=== PATIENT | male | born 1970 | race Two or more races ===

== ENCOUNTER 2021-12-30 23:08 | Inpatient (IN) | payer MEDICARE, MEDICAID ==
[~2021-12-30] VITALS: Ht 165.1 cm; Wt 57.2 kg
[~2021-12-30 23:08] MED LIST: [UNRECOGNIZED DRUG - REMARK]
[2021-12-31 00:09] LABS: Basophils # (auto) 0.1 10 ^3/uL (0-0.2); Basophils % (auto) 1.6 % (0.0-2.0); Eosinophils # (auto) 0.3 10 ^3/uL (0-0.8); Eosinophils % (auto) 4.7 % (0.0-7.0); Hematocrit 46.2 % (41.0-53.0); Hemoglobin 15.6 g/dL (13.5-17.5); Lymphocytes # (auto) 0.9 10 ^3/uL (0.4-5.4); Lymphocytes % (auto) 13.9 % (10.0-50.0); Mean Corpuscular Hemoglobin 28.7 pg (28.0-32.0); Mean Corpuscular Hgb Conc. 33.8 g/dL (32.0-36.0); Mean Corpuscular Volume 84.8 fL (80.0-100.0); Monocytes # (auto) 0.2 10 ^3/uL (0-1.3); Monocytes % (auto) 3.7 % (0.0-12.0); Neutrophils # (auto) 4.8 10 ^3/uL (1.6-8.6); Neutrophils % (auto) 76.1 % (37.0-80.0); Nucleated Red Blood Cells % 0.1 %; Red Blood Cells 5.45 10^6/uL (4.5-5.90); Red Cell Distribution Width 13.8 % (11.8-14.3); White Blood Cell 6.3 10^3/uL (4.4-10.8)
[2021-12-31 00:26] LABS: Alanine Aminotransferase 29 U/L (16-61); Albumin 3.9 g/dL (3.4-5.0); Anion Gap 9 (5-15); Aspartate Aminotransferase 18 U/L (15-37); BUN/Creatinine Ratio 14.3; Blood Alcohol < 3.0 mg/dL (0-5); Blood Urea Nitrogen 10 mg/dL (7-18); Carbon Dioxide 23 mmol/L (21-32); Chloride 108 mmol/L (98-107); GFR African American 152 mL/min; GFR Non-African American 125 mL/min; Glucose 93 mg/dL (74-106); Potassium 3.2 mmol/L (3.5-5.1); Sodium 140 mmol/L (136-145)
[2021-12-31 00:29] LABS: Alkaline Phosphatase 91 U/L (45-117); Bilirubin, Total 0.6 mg/dL (0.2-1.0); Total Protein 7.1 g/dL (6.4-8.2)
[2021-12-31] MEDS ORDERED: AZITHROMYCIN 500MG/ 250ML 250 ML IV ONE (02:00)
[2021-12-31] MEDS ORDERED: cefTRIAXone SOD 1,000 MG VL IV ONE (02:00)
[2021-12-31 02:09] LABS: Urine Bacteria NONE SEEN /hpf (None Seen); Urine Blood Negative /uL (Negative); Urine Specific Gravity 1.007 (1.001-1.035); Urine Sperm PRESENT /hpf (None Seen); Urine WBC <1 /hpf (0 - 3)
[2021-12-31] MEDS ORDERED: DOCUSATE SOD 100 MG CAP PO PRN (04:45)
[2021-12-31] MEDS ORDERED: hydrALAZINE HCL 20 MG/ML VL IV PRN (04:45)
[2021-12-31] MEDS ORDERED: ACETAMINOPHEN 325 MG TAB PO PRN (04:45)
[2021-12-31] MEDS ORDERED: ONDANSETRON HCL 4 MG/2 ML VIAL IV PRN (04:45)
[2021-12-31] MEDS ORDERED: HYDROcodone-ACET 5/325MG TAB PO PRN (04:45)
[2021-12-31] MEDS: POTASSIUM CHL 20MEQ/100ML 100 ML IV SCH ×2 (05:40→07:26)
[2021-12-31] MEDS ORDERED: MORPHINE SULFATE INJ 2 MG/ml SYRG IV PRN (05:45)
[2021-12-31] MEDS ORDERED: NITROGLYCERIN 0.4 MG SL TAB SL PRN (05:45)
[2021-12-31] MEDS: SODIUM CHLOR 0.9% PF (SALINE LOCK) 10ML VIAL/SYR IV SCH ×3 (05:56→22:40)
[2021-12-31 07:29] LABS: Basophils # (auto) 0.1 10 ^3/uL (0-0.2); Basophils % (auto) 0.6 % (0.0-2.0); Eosinophils # (auto) 0.2 10 ^3/uL (0-0.8); Eosinophils % (auto) 2.1 % (0.0-7.0); Hematocrit 38.4 % (41.0-53.0); Hemoglobin 12.7 g/dL (13.5-17.5); Lymphocytes # (auto) 3.2 10 ^3/uL (0.4-5.4); Lymphocytes % (auto) 30.7 % (10.0-50.0); Mean Corpuscular Hemoglobin 29.3 pg (28.0-32.0); Mean Corpuscular Hgb Conc. 33.2 g/dL (32.0-36.0); Mean Corpuscular Volume 88.2 fL (80.0-100.0); Monocytes % (auto) 9.8 % (0.0-12.0); Neutrophils # (auto) 5.9 10 ^3/uL (1.6-8.6); Neutrophils % (auto) 56.8 % (37.0-80.0); Red Blood Cells 4.35 10^6/uL (4.5-5.90); Red Cell Distribution Width 13.7 % (11.8-14.3); White Blood Cell 10.4 10^3/uL (4.4-10.8)
[2021-12-31 07:31] LABS: Potassium 3.4 mmol/L (3.5-5.1)
[2021-12-31 07:33] LABS: BUN/Creatinine Ratio 17.9
[2021-12-31 07:35] LABS: Bilirubin, Total 0.2 mg/dL (0.2-1.0); Total Protein 7.4 g/dL (6.4-8.2)
[2021-12-31] MEDS: cefTRIAXone 1GM/50ML D5W 50 ML IV SCH (12:21)
[2021-12-31] MEDS: AZITHROMYCIN 500MG/ 250ML 250 ML IV SCH (12:22)
[2021-12-31] MEDS: FAMOTIDINE (10MG/ML) 2ML VL IV SCH ×2 (12:22→22:00)
[2021-12-31] MEDS: ENOXAPARIN SOD 40 MG/0.4 ML SYRINGE SC SCH (12:22)
[2021-12-31] MEDS: MULTIPLE VITAMIN TAB PO SCH (12:23)
[2021-12-31] MEDS: ZINC SULFATE 220mg CAP or TAB PO SCH (12:24)
[2021-12-31] MEDS: ASCORBIC ACID 500 MG TAB PO SCH ×2 (12:25→22:40)
[2021-12-31 22:00] VITALS: BP 151/93
[2021-12-31 22:03] VITALS: BP 151/93
[2021-12-31 22:19] VITALS: BP 151/93
[2021-12-31] MEDS ORDERED: ATOR10TA52 PO (22:26)
[2021-12-31] MEDS ORDERED: TRIA0.5C TOP (22:26)
[2021-12-31] MEDS ORDERED: PARO10TA93 PO (22:26)
[2021-12-31] MEDS ORDERED: OMEP-260 PO (22:26)
[2021-12-31] MEDS ORDERED: BACL10TA PO (22:26)
[2021-12-31] MEDS ORDERED: CEPH500C PO (22:26)
[2022-01-01] MEDS ORDERED: ALPRAZolam 0.5 MG TAB PO ONE (00:45)
[2022-01-01] MEDS ORDERED: hydrALAZINE HCL 25 MG TAB PO PRN (00:45)
[2022-01-01 05:00] VITALS: BP 148/102
[2022-01-01] MEDS: SODIUM CHLOR 0.9% PF (SALINE LOCK) 10ML VIAL/SYR IV SCH ×2 (05:17→13:30)
[2022-01-01 06:23] LABS: Basophils # (auto) 0 10 ^3/uL (0-0.2); Basophils % (auto) 0.5 % (0.0-2.0); Eosinophils # (auto) 0.1 10 ^3/uL (0-0.8); Eosinophils % (auto) 0.9 % (0.0-7.0); Hematocrit 45.9 % (41.0-53.0); Hemoglobin 15.3 g/dL (13.5-17.5); Lymphocytes # (auto) 2.2 10 ^3/uL (0.4-5.4); Lymphocytes % (auto) 28.8 % (10.0-50.0); Mean Corpuscular Hemoglobin 28.4 pg (28.0-32.0); Mean Corpuscular Hgb Conc. 33.4 g/dL (32.0-36.0); Mean Corpuscular Volume 85.2 fL (80.0-100.0); Monocytes # (auto) 0.6 10 ^3/uL (0-1.3); Monocytes % (auto) 8.2 % (0.0-12.0); Neutrophils # (auto) 4.6 10 ^3/uL (1.6-8.6); Neutrophils % (auto) 61.6 % (37.0-80.0); Nucleated Red Blood Cells % 0.1 %; Red Blood Cells 5.38 10^6/uL (4.5-5.90); Red Cell Distribution Width 13.7 % (11.8-14.3); White Blood Cell 7.5 10^3/uL (4.4-10.8)
[2022-01-01 06:28] LABS: Potassium 3.3 mmol/L (3.5-5.1)
[2022-01-01 06:41] LABS: Albumin 3.8 g/dL (3.4-5.0); BUN/Creatinine Ratio 12.8; Bilirubin, Total 0.6 mg/dL (0.2-1.0); Calcium 8.8 mg/dL (8.5-10.1); Total Protein 6.7 g/dL (6.4-8.2)
[2022-01-01 09:00] VITALS: BP 143/92
[2022-01-01] MEDS: FAMOTIDINE (10MG/ML) 2ML VL IV SCH (10:00)
[2022-01-01] MEDS: AZITHROMYCIN 500MG/ 250ML 250 ML IV SCH (10:00)
[2022-01-01] MEDS: ASCORBIC ACID 500 MG TAB PO SCH (10:54)
[2022-01-01] MEDS: MULTIPLE VITAMIN TAB PO SCH (10:54)
[2022-01-01] MEDS: cefTRIAXone 1GM/50ML D5W 50 ML IV SCH (10:54)
[2022-01-01] MEDS: ZINC SULFATE 220mg CAP or TAB PO SCH (10:54)
[2022-01-01] MEDS: ENOXAPARIN SOD 40 MG/0.4 ML SYRINGE SC SCH (10:55)
[2022-01-01] MEDS ORDERED: AZIT500T66 PO (11:10)
[2022-01-01 13:00] VITALS: BP 106/70
[2022-01-01 13:21] VITALS: BP 106/70
== END 2022-01-01 17:20 | disposition home or self-care (01) | DRG 70 ==
LOC: ER 23:08 → EDBD 23:08 → OVERFLOW 12-31 05:41 → WEST WING 12-31 09:10
PROVIDERS: ADMIT Nurse Practitioner Family; ATTEND Family Medicine
DX: G93.41 Metabolic encephalopathy (principal); J18.9 Pneumonia, unspecified organism; J96.01 Acute respiratory failure with hypoxia; E46 Unspecified protein-calorie malnutrition; G80.8 Other cerebral palsy; E87.6 Hypokalemia; Z20.822 Contact with and (suspected) exposure to COVID-19; I51.7 Cardiomegaly; Z68.21 Body mass index [BMI] 21.0-21.9, adult; Z79.899 Other long term (current) drug therapy
CPT/HCPCS: 36415; 71045; 80053; 80320; 81001; 83605; 84484; 85025; 93005; 96365; 96375; G0378; J0696; J3480; J3490

== ENCOUNTER 2022-06-10 20:12 | Emergency (ER) | payer MEDICARE, MEDICAID ==
[~2022-06-10] VITALS: Ht 167.6 cm; Wt 60.0 kg
[~2022-06-10 20:12] MED LIST changes: +ATOR10TA52 PO; +AZIT500T66 PO; +BACL10TA PO; +CEPH500C PO; +OMEP-260 PO; +PARO10TA93 PO; +TRIA0.5C TOP
[2022-06-10 22:01] LABS: Basophils # (auto) 0.1 10 ^3/uL (0-0.2); Basophils % (auto) 0.4 % (0.0-2.0); Eosinophils # (auto) 0 10 ^3/uL (0-0.8); Eosinophils % (auto) 0.4 % (0.0-7.0); Hematocrit 48.4 % (41.0-53.0); Hemoglobin 16.2 g/dL (13.5-17.5); Lymphocytes # (auto) 1.5 10 ^3/uL (0.4-5.4); Lymphocytes % (auto) 13.3 % (10.0-50.0); Mean Corpuscular Hemoglobin 28.4 pg (28.0-32.0); Mean Corpuscular Hgb Conc. 33.4 g/dL (32.0-36.0); Mean Corpuscular Volume 85.1 fL (80.0-100.0); Monocytes # (auto) 0.8 10 ^3/uL (0-1.3); Monocytes % (auto) 7.4 % (0.0-12.0); Neutrophils # (auto) 8.9 10 ^3/uL (1.6-8.6); Neutrophils % (auto) 78.5 % (37.0-80.0); Nucleated Red Blood Cells % 0.2 %; Red Blood Cells 5.69 10^6/uL (4.5-5.90); Red Cell Distribution Width 14.1 % (11.8-14.3); White Blood Cell 11.3 10^3/uL (4.4-10.8)
[2022-06-10 22:19] LABS: Albumin 3.6 g/dL (3.4-5.0); BUN/Creatinine Ratio 17.5; Calcium 9.1 mg/dL (8.5-10.1); Potassium 3.4 mmol/L (3.5-5.1)
[2022-06-10 22:22] LABS: Bilirubin, Total 0.4 mg/dL (0.2-1.0)
[2022-06-10] MEDS ORDERED: ONDANSETRON ODT 4 MG TAB PO ONE (22:30)
[2022-06-10] MEDS ORDERED: ONDA-144 PO (23:30)
[2022-06-11 03:10] VITALS: BP 116/79
== END 2022-06-11 03:49 | disposition home or self-care (01) ==
LOC: ER 20:14
DX: K44.9 Diaphragmatic hernia without obstruction or gangrene (principal); R11.10 Vomiting, unspecified; Z79.899 Other long term (current) drug therapy
CPT/HCPCS: 36415; 71045; 74176; 80053; 83880; 84484; 85025; 99285; Q0162; 93005

== ENCOUNTER 2023-10-26 22:11 | Emergency (ER) | payer MEDICARE, MEDICAID ==
[~2023-10-26] VITALS: Ht 167.6 cm; Wt 63.6 kg
[~2023-10-26 22:11] MED LIST changes: -OMEP-260 PO; +OMEP1CAP70 PO; +ONDA-144 PO
[2023-10-27 00:33] VITALS: BP 142/76; PULSE 88; RESP 18; TEMP 97.4; O2SAT 94
[2023-10-27] MEDS: IBUPROFEN 600 MG TAB PO ONE (00:41)
== END 2023-10-27 00:59 | disposition home or self-care (01) ==
LOC: ER 22:11
DX: S80.01XA Contusion of right knee, initial encounter (principal); E78.5 Hyperlipidemia, unspecified; W22.03XA Walked into furniture, initial encounter; Y93.89 Activity, other specified; Y92.89 Other specified places as the place of occurrence of the external cause; Y99.8 Other external cause status
CPT/HCPCS: 73562